=== PATIENT | female | born 1950 | race Caucasian/White ===

== ENCOUNTER 2017-04-04 13:34 | Emergency (ER) | payer OTHER ==
[~2017-04-04 13:34] MED LIST: ADVIL200 MG PO; AMBIEN10 MG PO; ASPIRIN325 M3 PO; CALCIUM500 M4 PO; CELEBREX200 MG PO; CELEXA10 MG; CELEXA20 MG; CYMBALTA60 MG PO; DULOXETINE HCL60 M1 PO; IBUPROFEN200 M2 PO; MIRALAX17 G2 PO; MOBIC7.5 M2 PO; MULTIVITAMIN1 TAB; MULTIVITAMIN1 TAB PO; MULTIVITAMINS1 EAC6 PO; NORCO 5/325 TAB1 TAB PO; NORFLEX100 MG PO; OMEPRAZOLE20 M4 PO; ROXICODONE5 M2 PO; TOPROL XL50 M1 PO; TYLENOL325 M2 PO; ULTRAM50 M1 PO; ULTRAM50 MG PO; VITAMIN D-32000 UNI4 PO; ZOLPIDEM TARTRA10 M2 PO
[2017-04-04 14:36] LABS: BASO % 0.7 % (0-2); BASO ABSOLUTE COUNT 0.1 tho/cmm (0.0-0.2); EOS % 6.6 % (0-7); EOSINOPHIL ABSOLUTE COUNT 0.5 tho/cmm (0.0-0.7); HCT-HEMATOCRIT 42.2 % (34.0-49.0); HGB-HEMOGLOBIN 14.3 gm/dl (12.0-15.5); IMMATURE GRANULOCYTES ABSOLUTE 0.09 tho/cmm (0-0.03); IMMATURE GRANULOCYTES PERCENT 1.3 % (0-0.3); LYMPH % 22.7 % (20-45); LYMPH ABSOLUTE COUNT 1.6 tho/cmm (0.8-4.5); MCH (MEAN CORPUSCULAR HGB) 28.8 pg (28.0-32.0); MCHC MEAN CORPUSCULAR HGB CONC 33.9 % (32.0-36.0); MCV (MEAN CELL VOLUME) 84.9 fl (82.0-96.0); MONO % 7.9 % (0-12); MONOCYTE ABSOLUTE COUNT 0.6 tho/cmm (0.0-1.2); NEUTROPHIL ABSOLUTE COUNT 4.2 tho/cmm (1.6-8.0); NEUTROPHIL-AUTOMATED 4.2 tho/cmm (1.6-8.0); NEUTROPHILS % 60.8 % (40-80); PLATELET COUNT 227 tho/cmm (150-450); RED BLOOD COUNT 4.97 mil/cmm (4.00-5.20); RED CELL DISTRIBUTION WIDTH 13.9 % (12.4-16.4)
[2017-04-04 14:41] LABS: ANION GAP 15 mmol/L (0-20); BLOOD UREA NITROGEN 30 mg/dl (6-24); CALCIUM 8.8 mg/dl (8.5-10.5); CARBON DIOXIDE-VENOUS 22 mmol/L (22-32); CHLORIDE 107 mmol/l (96-110); CREATININE 1.26 mg/dl (0.50-1.10); GLUCOSE 156 mg/dL (70-110); SODIUM 140 mmol/L (135-145); eGFR VALUE FOR BLACK 52 mL/Min
[2017-04-04 14:50] LABS: POTASSIUM 4.3 mmol/L (3.7-5.1)
[2017-04-04] MEDS ORDERED: PREDNISONE50 M1 PO (15:03)
[2017-04-04] MEDS ORDERED: ZITHROMAX500 M2 PO (15:03)
[2017-04-04] MEDS ORDERED: PROAIR HFA8.5 GM INH (15:03)
== END 2017-04-04 17:39 ==
LOC: EDMED 13:34
PROVIDERS: Emergency Medicine
DX: J40 Bronchitis, not specified as acute or chronic (principal); N28.9 Disorder of kidney and ureter, unspecified; I10 Essential (primary) hypertension; Z90.49 Acquired absence of other specified parts of digestive tract; Z90.710 Acquired absence of both cervix and uterus; Z87.891 Personal history of nicotine dependence; Z79.899 Other long term (current) drug therapy
CPT/HCPCS: J2930; J7030